=== PATIENT | male | born 1930 | race Two or more races ===

== ENCOUNTER 2017-03-22 07:09 | Day surgery (SDC) | payer MEDICARE, MEDICAID ==
[2017-03-22] VITALS (7 sets, daily range): BP systolic 127–147; BP diastolic 60–69
[~2017-03-22] VITALS: Ht 167.6 cm; Wt 55.8 kg
--- NOTE | 2017-03-22 06:16 | Anethesia Preoperative Eval ---
Anesthesia Pre-op PMH/ROS General Date of Evaluation: Mar 22, 2017 Time of Evaluation: 06:14 Anesthesiologist: nate ASA Score: ASA 3 Mallampati Score Class I : Soft palate, uvula, fauces, pillars visible Class II: Soft palate, uvula, fauces visible Class III: Soft palate, base of uvula visible Class IV: Only hard plate visible Mallampati Classification: Class II Surgeon: keegan Diagnosis: abdominal pain Surgical Procedure: egd w/ biopsy Anesthesia History: none Allergies: Coded Allergies: No Known Allergies (Unverified , 03/22/17) Past Medical History Cardiovascular: Reports: HTN HEENT: Reports: cataract (L), cataract (R) Anesthesia Pre-op Phys. Exam Physician Exam Constitutional: NAD Neurologic: CN 2-12 intact Cardiovascular: RRR Respiratory: CTA Gastrointestinal: S/NT/ND Airway Exam Mallampati Score: Class II MO: full Neck: supple TMD: 2fb ROM: limited Teeth: intact Anesthesia Pre-op A/P Studies Pre-op Studies: EKG - sinus bradycardia Risk Assessment & Plan Assessment: asa3 Plan: mac Status Change Before Surgery: No Pre-Antibiotics Drug: MEENU Boles Mar 22, 2017 06:16
[2017-03-22] MEDS ORDERED: NORVASC10 MG ORAL (08:00)
[2017-03-22] MEDS ORDERED: TOPROL XL100 MG ORAL (08:00)
[2017-03-22] MEDS ORDERED: ASPIR 8181 MG ORAL (08:01)
[2017-03-22] MEDS ORDERED: TAMSULOSIN HCL0.4 MG ORAL (08:01)
[2017-03-22] MEDS ORDERED: AVAPRO150 MG ORAL (08:05)
[2017-03-22] MEDS ORDERED: ZYLOPRIM100 MG ORAL (08:05)
[2017-03-22] MEDS ORDERED: LORATADINE10 M3 PO (08:05)
[2017-03-22] MEDS ORDERED: PROSCAR5 MG ORAL (08:05)
[2017-03-22] MEDS ORDERED: VITAMIN D1000 UNI1 ORAL (08:05)
--- NOTE | 2017-03-22 08:13 | Pre-Procedure Note/Attestation ---
Pre-Procedure Note/Attestation Complete Prior to Procedure Planned Procedure: not applicable Procedure Narrative: egd Indications for Procedure Pre-Operative Diagnosis: solid dysphagia Attestation I attest that I discussed the nature of the procedure; its benefits; risks and complications; and alternatives (and the risks and benefits of such alternatives ), prior to the procedure, with the patient (or the patient's legal open claims representative). I attest that, if there was a reasonable possibility of needing a blood transfusion, the patient (or the patient's legal open claims representative) was given the [facility] standardized written summary, pursuant to the Jacobo Azam Blood Safety Act ([place] Health and Safety Code # 1645, as amended). I attest that I re-evaluated the patient just prior to the surgery and that there has been no change in the patient's H&P, except as documented below: KAVITA CORTEZ Mar 22, 2017 08:13
--- NOTE | 2017-03-22 08:14 | Short Stay Surgery H&P ---
History of Present Illness History of Present Illness Chief Complaint dysphagia HPI Louis Fortune is a 86 year old male who was admitted on for Abdominal Pain Patient History Allergies: Coded Allergies: No Known Allergies (Unverified , 03/22/17) PAST MEDICAL HISTORY: (1) HTN (hypertension) (2) Cataract Past Surgeries: Social History: Medication History Scheduled Allopurinol* (Zyloprim*), 100 MG ORAL DAILY, (Reported) Amlodipine Besylate (Norvasc), 10 MG ORAL DAILY, (Reported) Aspirin* (Aspir 81*), 81 MG ORAL DAILY, (Reported) Cholecalciferol (Vitamin D3)* (Vitamin D*), 5,000 UNIT ORAL DAILY, (Reported) Finasteride* (Proscar*), 5 MG ORAL DAILY, (Reported) Irbesartan* (Avapro*), 150 MG ORAL DAILY, (Reported) Metoprolol Succinate* (Toprol Xl*), 100 MG ORAL DAILY, (Reported) Tamsulosin Hcl (Tamsulosin Hcl*), 0.4 MG ORAL BEDTIME, (Reported) Miscellaneous Medications Loratadine (Loratadine), 10 MG PO, (Reported) Review of Systems Cardiovascular: Reports: no symptoms Respiratory: Reports: no symptoms Skeletal: Reports: no symptoms Gastrointestinal: Reports: gastro esophageal reflux disease Genitourinary: Reports: no symptoms Neurologic: Reports: no symptoms Endocrine: Reports: no symptoms Hematologic: Reports: no symptoms Physical Exam Vital Signs Last Vital Signs Date Time Temp Pulse Resp B/P (MAP) Pulse Ox O2 Delivery O2 Flow Rate FiO2 03/22/17 07:56 97.5 57 18 147/60 98 Room Air Skin: normal HENT: normal Heart: normal Lungs: normal Abdomen: normal Extremities: normal Plan Plan of Care egd Final Diagnosis: Attestation Are the patient's medical conditions optimized for surgery? Attestation Response: yes KAVITA CORTEZ Mar 22, 2017 08:14
[2017-03-22] MEDS ORDERED: Propofol 10mg/ml 20ml IV ONE (08:30)
[2017-03-22] MEDS ORDERED: Lidocaine 1% MPF 10mg/ml 5ml ONE (08:30)
[2017-03-22] MEDS ORDERED: DiphenhydrAMINE 50mg/ml Inj IVP PRN ×2 (08:45→09:00)
[2017-03-22] MEDS ORDERED: Atropine Inj 1mg/10ml Syr IV PRN ×2 (08:45→09:00)
[2017-03-22] MEDS ORDERED: Midazolam 2mg/2ml Inj IVP PRN ×2 (08:45→09:00)
[2017-03-22] MEDS ORDERED: Hydromorphone 0.5mg/0.5ml inj IVP PRN ×2 (08:45→09:00)
--- NOTE | 2017-03-22 08:46 | Endoscopy Procedure Note ---
Endoscopy Procedure Note Indication for Procedure: dysphagia Procedures Performed: EGD Operative Findings/Diagnosis: gastritis Specimen: yes Pt Tolerated Procedure Well: Yes Estimated Blood Loss: none Anesthesiologist: vin Anesthesia: MAC Implant(s) used?: No 50 yrs or older w/o bx or poly: Not Applicable 10yrs. F/U not recommended: Not Applicable KAVITA CORTEZ Mar 22, 2017 08:46
--- NOTE | 2017-03-22 09:01 | Immediate Post-Op Evaluation ---
Immediate Post-Op Evalulation Immediate Post-Op Evalulation Procedure: egd w/ biopsy Date of Evaluation: Mar 22, 2017 Time of Evaluation: 09:07 IV Fluids: 0.9ns 200ml Blood Products: none Estimated Blood Loss: negligible Blood Pressure Systolic: 129 Blood Pressure Diastolic: 61 Pulse Rate: 55 Respiratory Rate: 18 O2 Sat by Pulse Oximetry: 98 Temperature (Fahrenheit): 98.9 Pain Score (1-10): 0 Nausea: No Vomiting: No Complications none Patient Status: awake, reacts, patent Hydration Status: adequate Drug: MEENU Boles Mar 22, 2017 09:01
--- NOTE | 2017-03-22 09:10 | 48 Hour Post Anesthesia Eval ---
Post Anesthesia Evaluation Procedure: egd w/ biopsy Date of Evaluation: Mar 22, 2017 Time of Evaluation: 09:10 Blood Pressure Systolic: 147 0: 60 Pulse Rate: 55 Respiratory Rate: 18 Temperature (Fahrenheit): 98.9 O2 Sat by Pulse Oximetry: 98 Airway: patent Nausea: No Vomiting: No Pain Intensity: 0 Hydration Status: adequate Cardiopulmonary Status: stable Mental Status/LOC: patient returned to baseline Post-Anesthesia Complications: none Follow-up care needed: N/A MEENU LOPEZ Mar 22, 2017 09:10
--- NOTE | 2017-03-22 23:00 | Procedure Note ---
DATE OF PROCEDURE: 03/22/2017 SURGEON: Hakan Blue M.D. PROCEDURE: Upper endoscopy with biopsy. ANESTHESIOLOGIST: Vicki Perez M.D. INSTRUMENT: Olympus adult flexible upper endoscope. INDICATION: Solid dysphagia. REASON FOR PROCEDURE: The procedure, risks, benefits, and possible consequences, including hemorrhage, aspiration, perforation and infection, and alternative treatments, were explained to the patient/legal guardian by Dr. Hakan Blue and the patient/legal guardian understood and accepted these risks. PROCEDURE: After informed consent was obtained and the patient was adequately sedated, Olympus upper endoscope was advanced from mouth into the second portion of duodenum and retroflexion was performed in the stomach. The patient had evidence of atrophic gastritis, moderate to severe. Random biopsy from body and antrum was obtained to rule out H. pylori infection. There was no evidence of any ulceration, no obvious mass was seen. The patient had also evidence of small hiatal hernia. No obvious esophagitis. Duodenal mucosa grossly within normal limit. SUMMARY OF FINDINGS: 1. [id number] atrophic gastritis, status post biopsy. 2. Small hiatal hernia. RECOMMENDATIONS: Follow up biopsy results and treat accordingly. I want to thank, . , for this kind referral. Hakan Blue M.D. DR: MARIELLE JOB#: [id number] CC:
== END 2017-03-22 09:55 | disposition home or self-care (01) ==
LOC: GAS 07:09
DX: K29.40 Chronic atrophic gastritis without bleeding (principal); K44.9 Diaphragmatic hernia without obstruction or gangrene; A04.8 Other specified bacterial intestinal infections; I10 Essential (primary) hypertension; Z79.82 Long term (current) use of aspirin; H26.9 Unspecified cataract; R00.1 Bradycardia, unspecified
CPT/HCPCS: 93005; 94003; 94150